=== PATIENT | female | born 1960 | race Caucasian/White ===

== ENCOUNTER 2016-07-28 13:23 | Emergency (ER) | payer BC | END 2016-07-28 19:32 | disposition home or self-care (01) | LOC: ER1 13:23 | DX: S29.011A Strain of muscle and tendon of front wall of thorax, initial encounter (principal); S50.812A Abrasion of left forearm, initial encounter; V89.2XXA Person injured in unspecified motor-vehicle accident, traffic, initial encounter; Y92.410 Unspecified street and highway as the place of occurrence of the external cause; Y93.89 Activity, other specified; Z23 Encounter for immunization | CPT/HCPCS: 71020; 90471; 90715; 99284 ==

== ENCOUNTER 2020-06-17 11:48 | Emergency (ER) | payer OTHER ==
[~2020-06-17 11:48] MED LIST: REGLAN10 MG PO
== END 2020-06-17 13:32 | disposition home or self-care (01) ==
LOC: ER1 11:48
DX: S52.124A Nondisplaced fracture of head of right radius, initial encounter for closed fracture (principal); J45.909 Unspecified asthma, uncomplicated; I10 Essential (primary) hypertension; Z88.0 Allergy status to penicillin; Z88.1 Allergy status to other antibiotic agents; W00.0XXA Fall on same level due to ice and snow, initial encounter; Y92.009 Unspecified place in unspecified non-institutional (private) residence as the place of occurrence of the external cause
CPT/HCPCS: 73080; 99283

== ENCOUNTER 2021-11-16 17:01 | Emergency (ER) | payer OTHER | END 2021-11-16 18:55 | disposition home or self-care (01) | LOC: ER1 17:01 | DX: S80.812A Abrasion, left lower leg, initial encounter (principal); I10 Essential (primary) hypertension; Z23 Encounter for immunization; J45.909 Unspecified asthma, uncomplicated; Z79.899 Other long term (current) drug therapy; X58.XXXA Exposure to other specified factors, initial encounter | CPT/HCPCS: 73590; 90471; 90715; 99283 ==